=== PATIENT | female | born 1995 | race Caucasian/White ===

== ENCOUNTER 2018-09-23 21:47 | Emergency (ER) | payer SELFPAY ==
[~2018-09-23] VITALS: Ht 160 cm; Wt 152.0 kg
[2018-09-23 21:47] VITALS: BP 133/72
== END 2018-09-23 23:37 | disposition left against medical advice (07) ==
LOC: M ED 21:47
DX: Z53.21 Procedure and treatment not carried out due to patient leaving prior to being seen by health care provider (principal)

== ENCOUNTER 2018-10-11 15:51 | Emergency (ER) | payer OTHER, SELFPAY ==
[~2018-10-11] VITALS: Ht 160 cm; Wt 69.1 kg
[2018-10-11] MEDS ORDERED: ONDANSETRON 4MG/2ML VIAL (J2405) IV ONE (16:15)
[2018-10-11] MEDS ORDERED: NS 1,000 ML IV ONE (16:15)
[2018-10-11] MEDS ORDERED: KETOROLAC 30 MG/ML VIAL (J1885) IV ONE (16:15)
[2018-10-11 16:39] LABS: BASO # 0.1 10^3/uL (0.0-0.2); BASO % 0.7 % (0.0-1.0); EOS # 0.1 10^3/uL (0.0-0.50); EOS % 1.5 % (0.0-3.0); HEMATOCRIT 36.6 % (36.0-47.0); HEMOGLOBIN 12.5 g/dl (12.0-15.5); LYMPH # 2.8 10^3/uL (1.5-6.5); LYMPH % 30.1 % (24.0-44.0); MEAN CORPUSCULAR HEMOGLOBIN 35.3 pg (27.0-33.0); MEAN CORPUSCULAR HGB CONC 34.2 g/dl (32.0-36.5); MEAN CORPUSCULAR VOLUME 103.4 fl (80.0-96.0); MONO # 0.5 10^3/uL (0.0-0.8); NEUTROPHILS # 5.8 10^3/uL (1.8-7.7); NEUTROPHILS % 62.2 % (36.0-66.0); PLATELET COUNT, AUTOMATED 252 10^3/uL (150-450); RED BLOOD COUNT 3.54 10^6/uL (4.00-5.40); WHITE BLOOD COUNT 9.4 10^3/uL (4.0-10.0)
[2018-10-11 17:04] LABS: ALBUMIN 3.6 GM/DL (3.2-5.2); ALT/SGPT 18 U/L (12-78); BILIRUBIN,DIRECT < 0.1 MG/DL (0.0-0.2); BILIRUBIN,TOTAL 0.2 MG/DL (0.2-1.0); BLOOD UREA NITROGEN 15 MG/DL (7-18); CALCIUM LEVEL 8.3 MG/DL (8.5-10.1); CARBON DIOXIDE LEVEL 25 MEQ/L (21-32); CHLORIDE LEVEL 109 MEQ/L (98-107); CREATININE FOR GFR 0.69 MG/DL (0.55-1.30); GLOMERULAR FILTRATION RATE > 60.0 (>60); GLUCOSE, FASTING 78 MG/DL (70-100); LIPASE 85 U/L (73-393); POTASSIUM SERUM 3.7 MEQ/L (3.5-5.1); SODIUM LEVEL 140 MEQ/L (136-145); TOTAL PROTEIN 7.2 GM/DL (6.4-8.2)
[2018-10-11] MEDS ORDERED: ISOVUE-370 76% 125ML VIAL (Q9967 PER ML) As Ordered ONE (17:39)
[2018-10-11 17:59] LABS: URINE PREG TEST NEGATIVE (NEGATIVE)
--- NOTE | 2018-10-11 18:12 | REP ---
Clinical: Right flank pain with history of pyelonephritis. Technique: Axial contrast enhanced images from the lung bases to the pubic symphysis using 100 ml Isovue 370 intravenous contrast material with coronal and sagittal re-formations. Comparison: None. Findings: Lung bases are clear. Visualized heart and pericardium normal. Liver, spleen, pancreas, gallbladder, bilateral adrenal glands and kidneys are essentially normal. 2 mm and 3 mm nonobstructing right renal calculi are identified. There is no perinephric stranding or hydroureteronephrosis and no obvious evidence to suggest acute pyelonephritis by CT evaluation. The enteric system is without obstruction or acute inflammatory process. Normal terminal ileum and appendix identified in the right lower quadrant. Pelvis demonstrates collapsed normal bladder and age-appropriate uterus/adnexa. No pelvic fluid or ascites. No free air. No adenopathy. Abdominal aorta and vasculature without aneurysm or dissection. Ischial skeletal structures are intact. Impression: 1. No acute abdominopelvic pathology appreciated. 2. Two nonobstructing right intrarenal calculi and no obvious evidence to suggest acute pyelonephritis by CT evaluation. 3. No ascites, focal inflammatory stranding, or adenopathy. Electronically Signed by Herb Long MD 10/11/2018 06:04 P
[2018-10-11 18:41] VITALS: BP 109/70
== END 2018-10-11 18:55 | disposition home or self-care (01) ==
LOC: M ED 15:51
DX: R10.9 Unspecified abdominal pain (principal); F17.210 Nicotine dependence, cigarettes, uncomplicated; Z88.0 Allergy status to penicillin; Z88.5 Allergy status to narcotic agent; Z88.8 Allergy status to other drugs, medicaments and biological substances; Z87.442 Personal history of urinary calculi; Z87.448 Personal history of other diseases of urinary system; Z87.42 Personal history of other diseases of the female genital tract; Z84.2 Family history of other diseases of the genitourinary system
CPT/HCPCS: 36415; 74177; 80048; 80076; 81001; 81025; 83690; 84703; 85025; 96374; 96375; 99284; J1885; J2405; Q9967

== ENCOUNTER 2018-10-16 19:18 | Emergency (ER) | payer SELFPAY ==
[~2018-10-16] VITALS: Ht 160 cm; Wt 69.1 kg
[2018-10-16] MEDS ORDERED: NS 1,000 ML IV ONE (20:00)
[2018-10-16] MEDS ORDERED: KETOROLAC 30 MG/ML VIAL (J1885) IV ONE (20:00)
[2018-10-16] MEDS ORDERED: ONDANSETRON 4MG/2ML VIAL (J2405) IV ONE (20:00)
[2018-10-16 20:18] LABS: BASO # 0.1 10^3/uL (0.0-0.2); BASO % 1.1 % (0.0-1.0); EOS # 0.2 10^3/uL (0.0-0.50); EOS % 1.9 % (0.0-3.0); HEMOGLOBIN 13.2 g/dl (12.0-15.5); LYMPH # 2.9 10^3/uL (1.5-6.5); MEAN CORPUSCULAR HEMOGLOBIN 35.1 pg (27.0-33.0); MEAN CORPUSCULAR HGB CONC 33.8 g/dl (32.0-36.5); MEAN CORPUSCULAR VOLUME 103.7 fl (80.0-96.0); MONO # 0.6 10^3/uL (0.0-0.8); MONO % 6.2 % (0.0-5.0); NEUTROPHILS # 6.1 10^3/uL (1.8-7.7); NEUTROPHILS % 61.4 % (36.0-66.0); PLATELET COUNT, AUTOMATED 268 10^3/uL (150-450); RED BLOOD COUNT 3.76 10^6/uL (4.00-5.40)
[2018-10-16 20:39] LABS: BLOOD UREA NITROGEN 14 MG/DL (7-18); CALCIUM LEVEL 8.9 MG/DL (8.5-10.1); CARBON DIOXIDE LEVEL 27 MEQ/L (21-32); CHLORIDE LEVEL 108 MEQ/L (98-107); CREATININE FOR GFR 0.68 MG/DL (0.55-1.30); GLOMERULAR FILTRATION RATE > 60.0 (>60); GLUCOSE, FASTING 97 MG/DL (70-100); POTASSIUM SERUM 3.7 MEQ/L (3.5-5.1); SODIUM LEVEL 143 MEQ/L (136-145)
[2018-10-16 20:59] LABS: HCG, SERUM QUALITATIVE NEGATIVE (NEGATIVE)
--- NOTE | 2018-10-16 21:22 | REP ---
Clinical: Abdominal pain with history of nephrolithiasis. Technique: Axial noncontrast images from the lung bases to the pubic symphysis with coronal and sagittal re-formations. Comparison: 10/11/2018. Findings: Lung bases are clear. Liver, spleen, pancreas, gallbladder, and bilateral adrenal glands are normal for noncontrast evaluation. Kidneys demonstrate stable 2-3 mm calculi in the right kidney and 1 mm calculus in the left kidney without perinephric stranding, hydroureteronephrosis, or obstructing ureteral calculi. The enteric system is without obstruction or acute inflammatory process. Normal cecum, terminal ileum, and appendix identified in the right lower quadrant. Pelvis demonstrates collapsed normal bladder and age-appropriate uterus/adnexa. Small calcification in the right huey pelvis along the lateral aspect of the uterus appears chronic/stable. No ascites. No free air. No adenopathy. Abdominal aorta without aneurysm. Surrounding musculoskeletal structures are intact. Impression: 1. Stable nonobstructing renal calculi. 2. No acute abdominopelvic pathology appreciated. Electronically Signed by Herb Long MD 10/16/2018 09:13 P
[2018-10-16 22:39] VITALS: BP 96/54
== END 2018-10-16 22:41 | disposition home or self-care (01) ==
LOC: M ED 19:18
DX: R10.11 Right upper quadrant pain (principal); Z87.442 Personal history of urinary calculi; D64.9 Anemia, unspecified; N20.0 Calculus of kidney; Z72.0 Tobacco use; Z88.0 Allergy status to penicillin; Z88.5 Allergy status to narcotic agent; Z88.8 Allergy status to other drugs, medicaments and biological substances
CPT/HCPCS: 36415; 74176; 80048; 81001; 81025; 84703; 85025; 96361; 96374; 96375; 99284; J1885; J2405

== ENCOUNTER 2018-10-28 11:07 | Inpatient (IN) | payer BC, SELFPAY ==
[~2018-10-28] VITALS: Ht 160 cm; Wt 67.4 kg
[2018-10-28 11:47] LABS: HEMATOCRIT 40.2 % (36.0-47.0); HEMOGLOBIN 13.5 g/dl (12.0-15.5); MEAN CORPUSCULAR HEMOGLOBIN 35.3 pg (27.0-33.0); MEAN CORPUSCULAR HGB CONC 33.6 g/dl (32.0-36.5); MEAN CORPUSCULAR VOLUME 105.2 fl (80.0-96.0); PLATELET COUNT, AUTOMATED 235 10^3/uL (150-450); RED BLOOD COUNT 3.82 10^6/uL (4.00-5.40); WHITE BLOOD COUNT 9.4 10^3/uL (4.0-10.0)
[2018-10-28 12:20] LABS: ACETAMINOPHEN LEVEL < 2.0 UG/ML (10.0-30.0); ALBUMIN 4.1 GM/DL (3.2-5.2); ALT/SGPT 18 U/L (12-78); BILIRUBIN,DIRECT < 0.1 MG/DL (0.0-0.2); BILIRUBIN,TOTAL 0.4 MG/DL (0.2-1.0); BLOOD UREA NITROGEN 10 MG/DL (7-18); CALCIUM LEVEL 8.8 MG/DL (8.5-10.1); CARBON DIOXIDE LEVEL 24 MEQ/L (21-32); CHLORIDE LEVEL 110 MEQ/L (98-107); CREATININE FOR GFR 0.68 MG/DL (0.55-1.30); ETHYL ALCOHOL (ETHANOL) < 0.003 % (0.000-0.010); GLOMERULAR FILTRATION RATE > 60.0 (>60); GLUCOSE, FASTING 96 MG/DL (70-100); POTASSIUM SERUM 4.3 MEQ/L (3.5-5.1); SALICYLATE LEVEL 3.2 MG/DL (5.0-30.0); SODIUM LEVEL 139 MEQ/L (136-145); TOTAL PROTEIN 7.5 GM/DL (6.4-8.2)
[2018-10-28 13:01] LABS: AMPHETAMINES LEVEL URINE NEGATIVE (NEGATIVE); BARBITURATES URINE NEGATIVE (NEGATIVE); BENZODIAZEPINES URINE NEGATIVE (NEGATIVE); CANNABINOIDS URINE NEGATIVE (NEGATIVE); COCAINE METABOLITE URINE NEGATIVE (NEGATIVE); METHADONE URINE NEGATIVE (NEGATIVE); OPIATES URINE NEGATIVE (NEGATIVE); PHENCYCLIDINE URINE NEGATIVE (NEGATIVE)
[2018-10-28 13:45] LABS: URINE PREG TEST NEGATIVE (NEGATIVE)
[2018-10-28] MEDS ORDERED: MAALOX 30 ML SUSP *UDC PO PRN (15:15)
[2018-10-28] MEDS ORDERED: traZODone 50 MG TAB PO PRN (15:15)
[2018-10-28] MEDS ORDERED: MOM 30ML SUSPENSION UDC PO PRN (15:15)
[2018-10-28] MEDS: NICOTINE 21MG/24HR 1 EA TRANSDERMAL TD SCH (15:40)
[2018-10-28] MEDS: ACETAMINOPHEN TAB 650MG DOSE (2X325MG) PO PRN (15:40)
[2018-10-28] MEDS ORDERED: ACETAMINOPHEN 325 MG TAB As Ordered ONE (15:42)
[2018-10-28 17:01] VITALS: BP 112/63
[2018-10-29 06:31] VITALS: BP 115/64
[2018-10-29] MEDS: NICOTINE 21MG/24HR 1 EA TRANSDERMAL TD SCH (09:37)
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
[2018-10-29] MEDS ORDERED: ESCITALOPRAM OXALATE 10 MG TAB (LEXAPRO) PO ONE (15:30)
--- NOTE | 2018-10-29 16:27 | HPEPDOC ---
[facility] Medical History & Physical Date of Admission Oct 29, 2018 History and Physical CHIEF COMPLAINT: Suicidal ideation HISTORY OF PRESENT ILLNESS: 23 yo female presented suicidal ideation, and what she referred to as 'depressive and schizophrenic episode'. She denies headaches, changes in vision, chest pain, shortness of breath, abdominal pain, N/V/D. She notes some left heel pain, and endorses mild trauma to the area several months ago. She states she did follow up in [place] and had x-rays which as per patient revealed a sprain and no fracture. PAST MEDICAL HISTORY: Denies PAST SURGICAL HISTORY: x 3 ALLERGIES: Please see below. HOME MEDICATIONS: Please see below. PHYSICAL EXAMINATION: General: NAD, sitting comfortably on exam table, in good spirits HEENT: NC/AT, EOMI, PERRL, poor dentition Lungs: CTA B/L Heart: +S1S2, RRR Abd: soft, NT, +BS Ext: mild swelling on left heel, tender to touch, somewhat limited range of motion Neuro: no gross focal deficits, sensation intact throughout LABORATORY DATA: See below. ASSESSMENT: 23 yo female with no past medical history admitted for suicidal ideation. Plan: #suicidal ideation/depression/PTSD, multiple personality d/o - follow as per primary team - psychiatry #foot pain - CT left foot #nicotine abuse - 1 ppd/10 years - nicotine replacement therapy in place #DVT prophylaxis - not indicated - encourage mobility Vital Signs Vital Signs Date Time Temp Pulse Resp B/P (MAP) Pulse Ox O2 Delivery O2 Flow Rate FiO2 10/29/18 06:31 97.8 77 14 115/64 (81) 10/28/18 17:01 95 10/28/18 16:55 Room Air Laboratory Data Labs 24H Laboratory Tests 2 10/28/18 11:36: Nucleated Red Blood Cells % (auto) 0.0, Anion Gap 5L, Glomerular Filtration Rate > 60.0, Calcium Level 8.8, Aspartate Amino Transf (AST/SGOT) 13, Alanine Aminotransferase (ALT/SGPT) 18, Alkaline Phosphatase 57, Total Bilirubin 0.4, Direct Bilirubin < 0.1, Total Protein 7.5, Albumin 4.1, Albumin/Globulin Ratio 1.21, Thyroid Stimulating Hormone (TSH) 1.380, Salicylates Level 3.2L, Acetaminophen Level < 2.0L, Ethyl Alcohol Level < 0.003 10/28/18 12:26: Urine Test NEGATIVE, Urine Amphetamines Screen NEGATIVE, Urine Benzodiazepines Screen NEGATIVE, Urine Opiates Screen NEGATIVE, Urine Methadone Screen NEGATIVE, Urine Barbiturates Screen NEGATIVE, Urine Phencyclidine Screen NEGATIVE, Urine Cocaine Metabolite Screen NEGATIVE, Urine Cannabinoids Screen NEGATIVE CBC/BMP Laboratory Tests 10/28/18 11:36 Red Blood Count 3.82 L, Mean Corpuscular Volume 105.2 H, Mean Corpuscular Hemoglobin 35.3 H, Mean Corpuscular Hemoglobin Concent 33.6, Red Cell Distribution Width 12.1 Home Medications No Active Prescriptions or Reported Meds Allergies Coded Allergies: Penicillins (Verified Allergy, Intermediate, ANAPHYLAXIS, 10/11/18) cyclobenzaprine (Verified Allergy, Intermediate, ANAPHYLAXIS, 10/11/18) meperidine (Verified Allergy, Intermediate, ANAPHYLAXIS, 10/11/18) morphine (Verified Allergy, Intermediate, ITCHING, 10/11/18) valproic acid (Verified Allergy, Intermediate, ANAPHYLAXIS, 10/11/18) divalproex sodium (Verified Allergy, Unknown, 10/28/18) hydrocodone (Verified Adverse Reaction, Intermediate, HALLUCINATIONS, 10/11/18) PIERRE CAMACHO MD Oct 29, 2018 10:53
[2018-10-29 18:06] VITALS: BP 115/58
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
[2018-10-29] MEDS: QUEtiapine FUMARATE 25 MG TAB PO SCH (21:09)
[2018-10-29] MEDS: ACETAMINOPHEN TAB 650MG DOSE (2X325MG) PO PRN (21:36)
[2018-10-30 07:00] VITALS: BP 117/55
[2018-10-30] MEDS: NICOTINE 21MG/24HR 1 EA TRANSDERMAL TD SCH (09:01)
[2018-10-30] MEDS: ESCITALOPRAM OXALATE 10 MG TAB (LEXAPRO) PO SCH (09:02)
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
[2018-10-30] MEDS: ACETAMINOPHEN TAB 650MG DOSE (2X325MG) PO PRN (12:06)
[2018-10-30 18:05] VITALS: BP 114/70
--- NOTE | 2018-10-30 19:06 | IPNPDOC ---
Text Note Date of Service The patient was seen on 10/30/18. NOTE Subjective: Patient seen and examined. No acute overnight events. No new medical complaints. States her left heel feels about the same. Objective: General: NAD, sitting comfortably on exam table, in good spirits HEENT: NC/AT, EOMI, PERRL, poor dentition Lungs: CTA B/L Heart: +S1S2, RRR Abd: soft, NT, +BS Ext: mild swelling on left heel, tender to touch, somewhat limited range of motion Neuro: no gross focal deficits, sensation intact throughout ASSESSMENT: 23 yo female with no past medical history admitted for suicidal ideation. Plan: #suicidal ideation/depression/PTSD, multiple personality d/o - follow as per primary team - psychiatry #foot pain - CT left foot noted - no fracture #nicotine abuse - 1 ppd/10 years - nicotine replacement therapy in place #DVT prophylaxis - not indicated - encourage mobility VS,Fishbone, I+O VS, Fishbone, I+O Vital Signs Date Time Temp Pulse Resp B/P (MAP) Pulse Ox O2 Delivery O2 Flow Rate FiO2 10/30/18 18:05 98.8 83 16 114/70 (85) 10/28/18 17:01 95 10/28/18 16:55 Room Air PIERRE CAMACHO MD Oct 30, 2018 19:06
[2018-10-30] MEDS: QUEtiapine FUMARATE 25 MG TAB PO SCH (22:41)
[2018-10-31 07:05] VITALS: BP 103/57
[2018-10-31] MEDS: NICOTINE 21MG/24HR 1 EA TRANSDERMAL TD SCH (08:31)
[2018-10-31] MEDS: ESCITALOPRAM OXALATE 10 MG TAB (LEXAPRO) PO SCH (08:32)
[2018-10-31] MEDS: ACETAMINOPHEN TAB 650MG DOSE (2X325MG) PO PRN (08:59)
[2018-10-31 18:00] VITALS: BP 110/68
--- NOTE | 2018-10-31 18:17 | IPNPDOC ---
Text Note Date of Service The patient was seen on 10/31/18. NOTE Subjective: Patient seen and examined. No acute overnight events. No new medical complaints. States her left heel has somewhat improved Objective: General: NAD, sitting comfortably on exam table HEENT: NC/AT, EOMI, PERRL, poor dentition Lungs: CTA B/L Heart: +S1S2, RRR Abd: soft, NT, +BS Ext: mild swelling on left heel, tender to touch, limited range of motion Neuro: no gross focal deficits, sensation intact throughout ASSESSMENT: 23 yo female with no past medical history admitted for suicidal ideation. Plan: #suicidal ideation/depression/PTSD, multiple personality d/o - follow as per primary team - psychiatry #foot pain - CT left foot noted - no fracture - improving #nicotine abuse - 1 ppd/10 years - nicotine replacement therapy in place #DVT prophylaxis - not indicated - encourage mobility VS,Fishbone, I+O VS, Fishbone, I+O Vital Signs Date Time Temp Pulse Resp B/P (MAP) Pulse Ox O2 Delivery O2 Flow Rate FiO2 10/31/18 07:05 98.9 83 15 103/57 (72) 10/28/18 17:01 95 10/28/18 16:55 Room Air PIERRE CAMACHO MD Oct 31, 2018 18:17
[2018-10-31] MEDS: QUEtiapine FUMARATE 25 MG TAB PO SCH (22:53)
[2018-11-01 06:26] VITALS: BP 111/56
[2018-11-01] MEDS: ESCITALOPRAM OXALATE 10 MG TAB (LEXAPRO) PO SCH (08:36)
[2018-11-01] MEDS: NICOTINE 21MG/24HR 1 EA TRANSDERMAL TD SCH (08:36)
--- NOTE | 2018-11-01 12:46 | IPNPDOC ---
Text Note Date of Service The patient was seen on 11/01/18. NOTE Subjective: Patient seen and examined. No acute overnight events. Still complains of left ankle pain, worsens with movement and bearing weight. Objective: General: NAD, sitting comfortably on exam table HEENT: NC/AT, EOMI, PERRL, poor dentition Lungs: CTA B/L Heart: +S1S2, RRR Abd: soft, NT, +BS Ext: tender to touch, limited range of motion secondary to pain Neuro: no gross focal deficits, sensation intact throughout ASSESSMENT: 23 yo female with no past medical history admitted for suicidal ideation. Plan: #suicidal ideation/depression/PTSD, multiple personality d/o - follow as per primary team - psychiatry #foot pain - CT left foot noted - no fracture - still c/o pain - ortho c/s pending; MRI? #nicotine abuse - 1 ppd/10 years - nicotine replacement therapy in place #DVT prophylaxis - not indicated VS,Fishbone, I+O VS, Fishbone, I+O Vital Signs Date Time Temp Pulse Resp B/P (MAP) Pulse Ox O2 Delivery O2 Flow Rate FiO2 11/01/18 06:26 98.9 86 18 111/56 (74) 10/28/18 17:01 95 10/28/18 16:55 Room Air PIERRE CAMACHO MD Nov 01, 2018 12:46
[2018-11-01 18:00] VITALS: BP 113/69
[2018-11-01] MEDS: ACETAMINOPHEN TAB 650MG DOSE (2X325MG) PO PRN (20:55)
--- NOTE | 2018-11-01 21:32 | MHIPN ---
DATE: 10/31/2018 Says feels better today. SUBJECTIVE: Seen for followup in the presence of staff. Says feels better and that she had a good night. Slept better. Says appetite is improved. MENTAL STATUS EXAMINATION: Neat and cooperative. No agitation. No psychomotor retardation. She is coherent. Affect is reactive, fairly broad. Denies any suicidal thoughts or intents at present. No homicidal ideas or intents. No evidence of any psychosis. Cognition grossly intact. Judgment and insight are compromised at present. ASSESSMENT: 1. Major depressive disorder, recurrent, without psychotic features. 2. History of posttraumatic stress disorder. PLAN: Continue current care, observations. Encourage participation in activity in the unit. VITAL SIGNS: Blood pressure 103/57, pulse 83, temperature 98.9.
[2018-11-01] MEDS: QUEtiapine FUMARATE 25 MG TAB PO SCH (21:50)
[2018-11-02 06:29] VITALS: BP 116/60
[2018-11-02] MEDS: NICOTINE 21MG/24HR 1 EA TRANSDERMAL TD SCH ×2 (08:02→08:04)
[2018-11-02] MEDS: ESCITALOPRAM OXALATE 10 MG TAB (LEXAPRO) PO SCH (08:02)
--- NOTE | 2018-11-02 09:03 | MHIPN ---
DATE: 11/01/2018 CHIEF COMPLAINT: Feels better. SUBJECTIVE: Seen for follow-up, in the presence of staff. Says feels better, and that she had a good night. She says she feels more confident talking about matters that stress her, including her relationship with her father, and that she feels less anxious when doing that. MENTAL STATUS EXAMINATION: Neat and cooperative. No agitation. She is coherent. Affect broader than yesterday. Denies any suicidal thoughts or intents. No homicidal ideas or intents. No current evidence of any psychosis. Cognition grossly intact. Judgment and insight are possibly improved. ASSESSMENT: Major depressive disorder, recurrent. History of posttraumatic stress disorder (PTSD). PLAN: Continue current care, observations, encourage participation in activities on the unit. She will be meeting the treatment team, as well as the assigned psychiatrist tomorrow, and further recommendations will be made. VITAL SIGNS: Blood pressure 111/66, pulse 86, temperature 98.9.
[2018-11-02] MEDS ORDERED: ESCI10TA2 PO (09:14)
[2018-11-02] MEDS ORDERED: QUET1TAB7 PO (09:14)
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
== END 2018-11-02 11:27 | disposition home or self-care (01) | DRG 751 ==
LOC: M ED 11:07 → M ED INP 15:04 → M PSY 17:05
PROVIDERS: ADMIT Psychiatry & Neurology Psychiatry; ATTEND Psychiatry & Neurology Psychiatry
DX: F33.2 Major depressive disorder, recurrent severe without psychotic features (principal); F17.200 Nicotine dependence, unspecified, uncomplicated; F43.10 Post-traumatic stress disorder, unspecified; M79.672 Pain in left foot; Z88.0 Allergy status to penicillin; Z88.8 Allergy status to other drugs, medicaments and biological substances; Z88.5 Allergy status to narcotic agent

== ENCOUNTER 2018-11-09 12:49 | Inpatient (IN) | payer BC ==
[~2018-11-09] VITALS: Ht 160 cm; Wt 67.0 kg
[~2018-11-09 12:49] MED LIST: ESCI10TA2 PO; QUET1TAB7 PO
[2018-11-09 13:46] LABS: HEMATOCRIT 39.6 % (36.0-47.0); HEMOGLOBIN 13.3 g/dl (12.0-15.5); MEAN CORPUSCULAR HEMOGLOBIN 35.3 pg (27.0-33.0); MEAN CORPUSCULAR HGB CONC 33.6 g/dl (32.0-36.5); PLATELET COUNT, AUTOMATED 278 10^3/uL (150-450); RED BLOOD COUNT 3.77 10^6/uL (4.00-5.40); WHITE BLOOD COUNT 10.6 10^3/uL (4.0-10.0)
[2018-11-09 14:05] LABS: HCG, SERUM QUALITATIVE NEGATIVE (NEGATIVE)
[2018-11-09 14:17] LABS: ACETAMINOPHEN LEVEL < 2.0 UG/ML (10.0-30.0); ALBUMIN 4.1 GM/DL (3.2-5.2); ALT/SGPT 20 U/L (12-78); BILIRUBIN,DIRECT < 0.1 MG/DL (0.0-0.2); BILIRUBIN,TOTAL 0.3 MG/DL (0.2-1.0); BLOOD UREA NITROGEN 10 MG/DL (7-18); CALCIUM LEVEL 8.7 MG/DL (8.5-10.1); CARBON DIOXIDE LEVEL 29 MEQ/L (21-32); CHLORIDE LEVEL 106 MEQ/L (98-107); ETHYL ALCOHOL (ETHANOL) < 0.003 % (0.000-0.010); GLOMERULAR FILTRATION RATE > 60.0 (>60); GLUCOSE, FASTING 94 MG/DL (70-100); POTASSIUM SERUM 4.2 MEQ/L (3.5-5.1); SALICYLATE LEVEL 2.8 MG/DL (5.0-30.0); SODIUM LEVEL 141 MEQ/L (136-145); THYROID STIMULATING HORMONE 0.988 uIU/ML (0.358-3.740); TOTAL PROTEIN 7.1 GM/DL (6.4-8.2)
[2018-11-09 16:13] LABS: AMPHETAMINES LEVEL URINE NEGATIVE (NEGATIVE); BARBITURATES URINE NEGATIVE (NEGATIVE); BENZODIAZEPINES URINE NEGATIVE (NEGATIVE); CANNABINOIDS URINE NEGATIVE (NEGATIVE); COCAINE METABOLITE URINE NEGATIVE (NEGATIVE); METHADONE URINE NEGATIVE (NEGATIVE); OPIATES URINE NEGATIVE (NEGATIVE); PHENCYCLIDINE URINE NEGATIVE (NEGATIVE)
[2018-11-09] MEDS ORDERED: QUET1TAB7 PO (18:12)
[2018-11-09] MEDS ORDERED: ESCI10TA2 PO (18:12)
[2018-11-09] MEDS ORDERED: ACET-683 PO (18:12)
[2018-11-09] MEDS ORDERED: MAALOX 30 ML SUSP *UDC PO PRN (19:00)
[2018-11-09] MEDS ORDERED: ACETAMINOPHEN TAB 650MG DOSE (2X325MG) PO PRN (19:00)
[2018-11-09] MEDS ORDERED: MOM 30ML SUSPENSION UDC PO PRN (19:00)
[2018-11-09] MEDS ORDERED: traZODone 50 MG TAB PO PRN (19:00)
[2018-11-09] MEDS: QUEtiapine FUMARATE 25 MG TAB PO SCH (21:50)
[2018-11-09 22:48] VITALS: BP 119/70
[2018-11-10 06:39] VITALS: BP 110/55
[2018-11-10] MEDS ORDERED: ESCITALOPRAM OXALATE 10 MG TAB (LEXAPRO) PO SCH (09:00)
[2018-11-10] MEDS: NICOTINE 21MG/24HR 1 EA TRANSDERMAL TD SCH (09:30)
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
[2018-11-10] MEDS ORDERED: ESCITALOPRAM OXALATE 10 MG TAB (LEXAPRO) PO ONE (12:45)
[2018-11-10 18:00] VITALS: BP 111/65
[2018-11-10] MEDS: QUEtiapine FUMARATE 25 MG TAB PO SCH (21:19)
[2018-11-11] MEDS: ESCITALOPRAM OXALATE 10 MG TAB (LEXAPRO) PO SCH (08:35)
[2018-11-11] MEDS: NICOTINE 21MG/24HR 1 EA TRANSDERMAL TD SCH (08:36)
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
[2018-11-11 18:00] VITALS: BP 120/57
[2018-11-11] MEDS: QUEtiapine FUMARATE 25 MG TAB PO SCH (21:32)
[2018-11-12 07:53] VITALS: BP 114/60
[2018-11-12] MEDS: ESCITALOPRAM OXALATE 10 MG TAB (LEXAPRO) PO SCH (08:12)
[2018-11-12] MEDS: NICOTINE 21MG/24HR 1 EA TRANSDERMAL TD SCH (08:13)
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
[2018-11-12] MEDS: hydrOXYzine 25 MG TAB PO PRN (12:43)
[2018-11-12 18:00] VITALS: BP 110/59
[2018-11-12] MEDS: QUEtiapine FUMARATE 25 MG TAB PO SCH (21:31)
[2018-11-13 07:12] VITALS: BP 83/16
[2018-11-13] MEDS: NICOTINE 21MG/24HR 1 EA TRANSDERMAL TD SCH (08:18)
[2018-11-13] MEDS: ESCITALOPRAM OXALATE 10 MG TAB (LEXAPRO) PO SCH (08:19)
[2018-11-13] MEDS: hydrOXYzine 25 MG TAB PO PRN (08:19)
[2018-11-13] MEDS ORDERED: ESCI10TA2 PO (08:59)
[2018-11-13] MEDS ORDERED: HYDR-3363 PO (08:59)
[2018-11-13] MEDS ORDERED: QUET1TAB7 PO (08:59)
[2018-11-13] MEDS ORDERED: TRAZO50TA PO (08:59)
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
== END 2018-11-13 11:15 | disposition home or self-care (01) | DRG 751 ==
LOC: M ED 12:49 → M ED INP 18:55 → M PSY 22:41
PROVIDERS: ADMIT Psychiatry & Neurology Psychiatry; ATTEND Psychiatry & Neurology Psychiatry
DX: F33.9 Major depressive disorder, recurrent, unspecified (principal); F60.3 Borderline personality disorder; F43.10 Post-traumatic stress disorder, unspecified; Z91.42 Personal history of forced labor or sexual exploitation; Z79.899 Other long term (current) drug therapy; Z88.0 Allergy status to penicillin; Z88.5 Allergy status to narcotic agent; Z88.8 Allergy status to other drugs, medicaments and biological substances

== ENCOUNTER → 2018-11-21 | Emergency (ER) | payer BC ==
[~2018-11-21] VITALS: Ht 160 cm; Wt 62.7 kg
[~2018-11-21] MED LIST changes: +ACET-683 PO; +HYDR-3363 PO; +IBUP-1022 PO; +MIRA3350 PO; +SIME180C PO; +TRAZ1TAB10 PO
[2018-11-21 00:08] VITALS: BP 119/72
== END | disposition left against medical advice (07) ==
LOC: M ED 00:07
DX: R10.9 Unspecified abdominal pain (principal); Z53.21 Procedure and treatment not carried out due to patient leaving prior to being seen by health care provider

== ENCOUNTER → 2018-11-24 | Outpatient (REF) | payer BC ==
[~2018-11-24] MED LIST changes: -IBUP-1022 PO; -MIRA3350 PO; -SIME180C PO; -TRAZ1TAB10 PO; +TRAZO50TA PO
[2018-11-24 11:57] LABS: BASO # 0.1 10^3/uL (0.0-0.2); BASO % 0.7 % (0.0-1.0); EOS # 0.1 10^3/uL (0.0-0.50); EOS % 1.2 % (0.0-3.0); HEMOGLOBIN 14.2 g/dl (12.0-15.5); LYMPH # 2.8 10^3/uL (1.5-6.5); LYMPH % 25.7 % (24.0-44.0); MEAN CORPUSCULAR HEMOGLOBIN 35.6 pg (27.0-33.0); MEAN CORPUSCULAR VOLUME 107.8 fl (80.0-96.0); MONO # 0.6 10^3/uL (0.0-0.8); MONO % 5.4 % (0.0-5.0); NEUTROPHILS # 7.1 10^3/uL (1.8-7.7); NEUTROPHILS % 66.4 % (36.0-66.0); PLATELET COUNT, AUTOMATED 275 10^3/uL (150-450); RED BLOOD COUNT 3.99 10^6/uL (4.00-5.40); WHITE BLOOD COUNT 10.8 10^3/uL (4.0-10.0)
[2018-11-24 12:18] LABS: ALBUMIN 3.8 GM/DL (3.2-5.2); ALT/SGPT 20 U/L (12-78); BILIRUBIN,TOTAL 0.3 MG/DL (0.2-1.0); BLOOD UREA NITROGEN 11 MG/DL (7-18); CALCIUM LEVEL 8.8 MG/DL (8.5-10.1); CARBON DIOXIDE LEVEL 27 MEQ/L (21-32); CHLORIDE LEVEL 108 MEQ/L (98-107); CHOLESTEROL LEVEL 150 MG/DL (<200); CREATININE FOR GFR 0.77 MG/DL (0.55-1.30); FREE T4 0.81 NG/DL (0.76-1.46); GLOMERULAR FILTRATION RATE > 60.0 (>60); GLUCOSE, FASTING 92 MG/DL (70-100); HDL CHOLESTEROL 40 MG/DL (>40); LDL CHOLESTEROL 73 MG/DL (<100); NON-HDL-C 110 MG/DL; POTASSIUM SERUM 4.5 MEQ/L (3.5-5.1); SODIUM LEVEL 140 MEQ/L (136-145); THYROID STIMULATING HORMONE 0.992 uIU/ML (0.358-3.740); TOTAL 25(OH) VITAMIN D 15.1 NG/ML (30.0-100.0); TOTAL PROTEIN 7.5 GM/DL (6.4-8.2); TRIGLYCERIDES LEVEL 184 MG/DL (<150)
[2018-11-24 19:12] LABS: FOLATE 7.7 NG/ML (>5.4); VITAMIN B12 LEVEL 405 PG/ML (247-911)
== END ==
LOC: M SFHCPLAZ 10:06
PROVIDERS: ATTEND Nurse Practitioner Family
DX: Z13.228 Encounter for screening for other metabolic disorders (principal); E55.9 Vitamin D deficiency, unspecified

== ENCOUNTER 2018-12-13 22:23 | Emergency (ER) | payer BC ==
[~2018-12-13] VITALS: Ht 160 cm; Wt 66.8 kg
[~2018-12-13 22:23] MED LIST changes: +TRAZ1TAB10 PO; -TRAZO50TA PO
[2018-12-13 22:58] LABS: BASO # 0.1 10^3/uL (0.0-0.2); BASO % 0.9 % (0.0-1.0); EOS # 0.2 10^3/uL (0.0-0.50); EOS % 2.1 % (0.0-3.0); HEMATOCRIT 42.1 % (36.0-47.0); HEMOGLOBIN 14.2 g/dl (12.0-15.5); LYMPH # 3.5 10^3/uL (1.5-6.5); LYMPH % 36.1 % (24.0-44.0); MEAN CORPUSCULAR HEMOGLOBIN 35.9 pg (27.0-33.0); MEAN CORPUSCULAR HGB CONC 33.7 g/dl (32.0-36.5); MEAN CORPUSCULAR VOLUME 106.3 fl (80.0-96.0); MONO # 0.7 10^3/uL (0.0-0.8); MONO % 6.9 % (0.0-5.0); NEUTROPHILS # 5.2 10^3/uL (1.8-7.7); NEUTROPHILS % 53.5 % (36.0-66.0); PLATELET COUNT, AUTOMATED 280 10^3/uL (150-450); RED BLOOD COUNT 3.96 10^6/uL (4.00-5.40); WHITE BLOOD COUNT 9.8 10^3/uL (4.0-10.0)
[2018-12-13 23:21] LABS: HCG, SERUM QUALITATIVE NEGATIVE (NEGATIVE)
[2018-12-13 23:24] LABS: ALBUMIN 3.8 GM/DL (3.2-5.2); ALT/SGPT 23 U/L (12-78); BILIRUBIN,DIRECT < 0.1 MG/DL (0.0-0.2); BILIRUBIN,TOTAL 0.1 MG/DL (0.2-1.0); BLOOD UREA NITROGEN 12 MG/DL (7-18); CALCIUM LEVEL 8.6 MG/DL (8.5-10.1); CARBON DIOXIDE LEVEL 29 MEQ/L (21-32); CHLORIDE LEVEL 108 MEQ/L (98-107); GLOMERULAR FILTRATION RATE > 60.0 (>60); GLUCOSE, FASTING 94 MG/DL (70-100); LIPASE 131 U/L (73-393); POTASSIUM SERUM 4.3 MEQ/L (3.5-5.1); SODIUM LEVEL 144 MEQ/L (136-145); TOTAL PROTEIN 7.8 GM/DL (6.4-8.2)
[2018-12-14] MEDS ORDERED: KETOROLAC 30 MG/ML VIAL (J1885) IV ONE (00:15)
[2018-12-14] MEDS ORDERED: ONDANSETRON 4MG/2ML VIAL (J2405) IV ONE (00:15)
[2018-12-14] MEDS ORDERED: NS 1,000 ML IV ONE (00:15)
[2018-12-14] MEDS ORDERED: ISOVUE-370 76% 100ML VIAL (Q9967) As Ordered ONE (00:29)
--- NOTE | 2018-12-14 01:30 | REPVR ---
EXAM: CT Abdomen and Pelvis With Contrast EXAM DATE/TIME: 12/14/2018 12:35 AM CLINICAL HISTORY: 23 years old, female; Abdominal pain; Localized; Right; Additional info: Right abd pain, guarding TECHNIQUE: Imaging protocol: Axial computed tomography images of the abdomen and pelvis with intravenous contrast. Coronal and sagittal reformatted images were created and reviewed. Radiation optimization: All CT scans at this facility use at least one of these dose optimization techniques: automated exposure control; mA and/or kV adjustment per patient size (includes targeted exams where dose is matched to clinical indication); or iterative reconstruction. Contrast material: ISOVUE 370; Contrast volume: 100 ml; Contrast route: IV; COMPARISON: CT ABD/PEL W/IV CONTRAST ONLY 10/11/2018 5:42 PM FINDINGS: Lungs: Bilateral dependent atelectasis. ABDOMEN: Liver: Normal. No mass. Gallbladder and bile ducts: Normal. No calcified stones. No ductal dilation. Pancreas: Normal. No ductal dilation. Spleen: Normal. No splenomegaly. Adrenals: Normal. No mass. Kidneys and ureters: Right renal cortical scarring. Nonobstructive calculus in the superior pole of the right kidney. No hydronephrosis. Stomach and bowel: No bowel obstruction. Appendix: Normal appendix. PELVIS: Bladder: Unremarkable as visualized. Reproductive: Gas in the vagina. Rectovaginal fistula cannot be excluded. Complex 2 cm left ovarian cyst can be further assessed with pelvic ultrasound if clinically warranted. ABDOMEN and PELVIS: Intraperitoneal space: Trace free fluid in the cul-de-sac. Bones/joints: Bilateral L4 pars interarticularis defects. Soft tissues: Mild diastases of the periumbilical abdominal wall. Vasculature: Normal. No abdominal aortic aneurysm. Lymph nodes: Normal. No enlarged lymph nodes. IMPRESSION: 1. Gas in the vagina. Rectovaginal fistula cannot be excluded. 2. Trace free fluid in the cul-de-sac. Complex 2 cm left ovarian cyst can be further assessed with pelvic ultrasound if clinically warranted. 3. Nonobstructive calculus in the superior pole of the right kidney. No hydronephrosis. 4. No bowel obstruction. Normal appendix. Electronically signed by: Joby Brennan On 12/14/2018 01:29:35 AM
[2018-12-14 02:01] VITALS: BP 111/70
[2018-12-14] MEDS ORDERED: MIRA3350 PO (02:05)
[2018-12-14] MEDS ORDERED: IBUP-1022 PO (02:05)
[2018-12-14] MEDS ORDERED: SIME180C PO (02:05)
--- NOTE | 2018-12-14 06:38 | ED PDOC ---
Post-Departure Follow-Up noe martinez faxed formal report of ct abd/p for fu Yan Mckee MD Dec 14, 2018 06:38
== END 2018-12-14 02:11 | disposition home or self-care (01) ==
LOC: M ED 22:23
DX: N83.202 Unspecified ovarian cyst, left side (principal); N89.8 Other specified noninflammatory disorders of vagina; F33.9 Major depressive disorder, recurrent, unspecified; F41.9 Anxiety disorder, unspecified; F60.9 Personality disorder, unspecified; Z79.899 Other long term (current) drug therapy; Z88.0 Allergy status to penicillin; Z88.5 Allergy status to narcotic agent; Z88.8 Allergy status to other drugs, medicaments and biological substances; F17.210 Nicotine dependence, cigarettes, uncomplicated
CPT/HCPCS: 74177; 80048; 80076; 81001; 83690; 84703; 85025; 96361; 96374; 96375; 99284; J1885; J2405; Q9967

== ENCOUNTER 2019-01-10 01:56 | Emergency (ER) | payer BC, SELFPAY ==
[~2019-01-10] VITALS: Ht 160 cm; Wt 68.2 kg
[~2019-01-10 01:56] MED LIST changes: +IBUP-1022 PO; +MIRA3350 PO; +SIME180C PO
[2019-01-10] MEDS ORDERED: KETOROLAC 30 MG/ML VIAL (J1885) IV ONE (04:45)
[2019-01-10] MEDS ORDERED: dexameTHASONE 20 MG/5 ML VIAL (J1100) IV ONE (04:45)
[2019-01-10 05:37] VITALS: BP 124/69
[2019-01-21] MEDS ORDERED: REGL5TAB2 PO (19:04)
[2019-01-21] MEDS ORDERED: ZITH250T PO (19:04)
[2019-01-21] MEDS ORDERED: IBUP-1022 PO (19:04)
== END 2019-01-10 06:22 | disposition home or self-care (01) ==
LOC: M ED 01:56
DX: G43.909 Migraine, unspecified, not intractable, without status migrainosus (principal); Z79.899 Other long term (current) drug therapy; Z88.0 Allergy status to penicillin; Z88.5 Allergy status to narcotic agent; Z88.8 Allergy status to other drugs, medicaments and biological substances; F17.210 Nicotine dependence, cigarettes, uncomplicated
CPT/HCPCS: 96374; 96375; 99284; J1100; J1885

== ENCOUNTER 2019-02-15 21:00 | Emergency (ER) | payer SELFPAY ==
[~2019-02-15] VITALS: Ht 160 cm; Wt 68.2 kg
[~2019-02-15 21:00] MED LIST changes: +REGL5TAB2 PO; +ZITH250T PO
[2019-02-15 21:01] VITALS: BP 132/78
[2019-02-15] MEDS ORDERED: BUTACAP78 PO (21:07)
[2019-02-16] MEDS ORDERED: BUPIVACAINE LIPOSOME/PF 1.3% 20ML VIAL (13.3MG/ML)(EXPAREL)(C9290 PER1MG) INFIL ONE (00:45)
[2019-02-16] MEDS ORDERED: CLEO300C2 PO (00:48)
== END 2019-02-16 01:12 | disposition home or self-care (01) ==
LOC: M ED 21:00
DX: K02.9 Dental caries, unspecified (principal); K08.89 Other specified disorders of teeth and supporting structures; F60.9 Personality disorder, unspecified; Z72.0 Tobacco use; Z88.0 Allergy status to penicillin; Z88.8 Allergy status to other drugs, medicaments and biological substances; Z88.5 Allergy status to narcotic agent
CPT/HCPCS: 64400; 99283; C9290

== ENCOUNTER 2019-02-18 13:17 | Emergency (ER) | payer SELFPAY ==
[~2019-02-18] VITALS: Ht 160 cm; Wt 68.2 kg
[~2019-02-18 13:17] MED LIST changes: +BUTACAP78 PO; +CLEO300C2 PO
[2019-02-18] MEDS ORDERED: IBUP-1022 PO (13:23)
[2019-02-18] MEDS ORDERED: KETOROLAC 60 MG/2 ML VIAL (J1885) IM ONE (16:30)
[2019-02-18] MEDS ORDERED: KETO10TAB PO (16:52)
[2019-02-18 17:05] VITALS: BP 112/76
== END 2019-02-18 17:06 | disposition home or self-care (01) ==
LOC: M ED 13:17
DX: K04.7 Periapical abscess without sinus (principal); K02.9 Dental caries, unspecified; S02.5XXA Fracture of tooth (traumatic), initial encounter for closed fracture; X58.XXXA Exposure to other specified factors, initial encounter; Y92.89 Other specified places as the place of occurrence of the external cause; F17.200 Nicotine dependence, unspecified, uncomplicated; Z88.0 Allergy status to penicillin; Z88.8 Allergy status to other drugs, medicaments and biological substances; Z88.5 Allergy status to narcotic agent; Z79.899 Other long term (current) drug therapy; Z79.2 Long term (current) use of antibiotics
CPT/HCPCS: 96372; 99283; J1885

== ENCOUNTER 2019-02-20 14:07 | Emergency (ER) | payer SELFPAY ==
[~2019-02-20] VITALS: Ht 160 cm; Wt 68.2 kg
[~2019-02-20 14:07] MED LIST changes: +KETO10TAB PO
[2019-02-20 15:12] LABS: BASO # 0.1 10^3/uL (0.0-0.2); BASO % 0.6 % (0.0-1.0); EOS # 0.1 10^3/uL (0.0-0.50); EOS % 0.9 % (0.0-3.0); HEMATOCRIT 38.2 % (36.0-47.0); LYMPH # 1.9 10^3/uL (1.5-6.5); LYMPH % 17.2 % (24.0-44.0); MEAN CORPUSCULAR VOLUME 105.8 fl (80.0-96.0); MONO # 0.6 10^3/uL (0.0-0.8); MONO % 5.9 % (0.0-5.0); NEUTROPHILS # 8.1 10^3/uL (1.8-7.7); PLATELET COUNT, AUTOMATED 252 10^3/uL (150-450); RED BLOOD COUNT 3.61 10^6/uL (4.00-5.40); WHITE BLOOD COUNT 10.8 10^3/uL (4.0-10.0)
[2019-02-20] MEDS ORDERED: NS 1,000 ML IV ONE (15:30)
[2019-02-20] MEDS ORDERED: ONDANSETRON 4MG/2ML VIAL (J2405) IV ONE (15:30)
[2019-02-20] MEDS ORDERED: KETOROLAC 30 MG/ML VIAL (J1885) IV ONE (15:30)
[2019-02-20 15:45] LABS: ALT/SGPT 16 U/L (12-78); BILIRUBIN,DIRECT 0.2 MG/DL (0.0-0.2); BILIRUBIN,TOTAL 0.4 MG/DL (0.2-1.0); BLOOD UREA NITROGEN 13 MG/DL (7-18); CALCIUM LEVEL 8.8 MG/DL (8.5-10.1); CARBON DIOXIDE LEVEL 27 MEQ/L (21-32); CHLORIDE LEVEL 111 MEQ/L (98-107); GLOMERULAR FILTRATION RATE > 60.0 (>60); GLUCOSE, FASTING 96 MG/DL (70-100); LIPASE 77 U/L (73-393); POTASSIUM SERUM 4.1 MEQ/L (3.5-5.1); SODIUM LEVEL 143 MEQ/L (136-145); TOTAL PROTEIN 7.4 GM/DL (6.4-8.2)
[2019-02-20] MEDS ORDERED: MACR100C43 PO (17:10)
[2019-02-20] MEDS ORDERED: NITROFURANTOIN (MACROBID) 100 MG CAP PO ONE (17:15)
[2019-02-20 17:17] VITALS: BP 102/62
--- NOTE | 2019-02-20 19:18 | REP ---
REASON: Right upper quadrant pain. Multiple ultrasonographic images of the liver show the hepatic parenchymal echo patten to be within normal limits. There is no intrahepatic or extrahepatic ductal dilatation. The common bile duct measures 4 mm. Multiple ultrasonographic images of the gallbladder show no abnormalities. The imaged portion of the pancreas and right kidney are within normal limits. There is an incidental echogenic focus seen in the superior pole of the right kidney. This does not cast an acoustic shadow and there is no associated hydronephrosis. IMPRESSION: Negative right upper quadrant ultrasound. Electronically Signed by Murray Oleary DO 02/21/2019 10:01 A
== END 2019-02-20 17:18 | disposition home or self-care (01) ==
LOC: M ED 14:07
DX: N39.0 Urinary tract infection, site not specified (principal); D64.9 Anemia, unspecified; Z79.899 Other long term (current) drug therapy; Z88.0 Allergy status to penicillin; Z88.5 Allergy status to narcotic agent; Z88.8 Allergy status to other drugs, medicaments and biological substances; F17.210 Nicotine dependence, cigarettes, uncomplicated
CPT/HCPCS: 76705; 80048; 80076; 81001; 83690; 84702; 85025; 87088; 87186; 96361; 96374; 96375; 99284; J1885; J2405

== ENCOUNTER 2019-03-21 15:21 | Emergency (ER) | payer SELFPAY ==
[~2019-03-21] VITALS: Ht 160 cm; Wt 66.8 kg
[~2019-03-21 15:21] MED LIST changes: +MACR100C43 PO
[2019-03-21 17:08] VITALS: BP 106/63
== END 2019-03-21 17:39 | disposition home or self-care (01) ==
LOC: M ED 15:21
DX: M25.472 Effusion, left ankle (principal); S93.402A Sprain of unspecified ligament of left ankle, initial encounter; X58.XXXA Exposure to other specified factors, initial encounter; Y92.9 Unspecified place or not applicable; M25.572 Pain in left ankle and joints of left foot; G47.00 Insomnia, unspecified; F17.210 Nicotine dependence, cigarettes, uncomplicated; Z86.59 Personal history of other mental and behavioral disorders; Z88.0 Allergy status to penicillin; Z88.5 Allergy status to narcotic agent; Z88.8 Allergy status to other drugs, medicaments and biological substances; Z79.899 Other long term (current) drug therapy

== ENCOUNTER 2019-03-23 13:28 | Emergency (ER) | payer SELFPAY ==
[~2019-03-23] VITALS: Ht 160 cm; Wt 66.1 kg
[2019-03-23] MEDS ORDERED: ONDANSETRON 4MG/2ML VIAL (J2405) IV ONE (15:15)
[2019-03-23] MEDS ORDERED: KETOROLAC 30 MG/ML VIAL (J1885) IV ONE (15:15)
[2019-03-23 15:24] LABS: BASO # 0.1 10^3/uL (0.0-0.2); BASO % 0.6 % (0.0-1.0); EOS # 0.1 10^3/uL (0.0-0.5); EOS % 0.7 % (0.0-3.0); HEMATOCRIT 41.5 % (36.0-47.0); HEMOGLOBIN 14.2 g/dl (12.0-15.5); LYMPH # 1.5 10^3/uL (1.5-5.0); LYMPH % 14.3 % (24.0-44.0); MEAN CORPUSCULAR HEMOGLOBIN 36.7 pg (27.0-33.0); MEAN CORPUSCULAR HGB CONC 34.2 g/dl (32.0-36.5); MEAN CORPUSCULAR VOLUME 107.2 fl (80.0-96.0); MONO # 0.6 10^3/uL (0.0-0.8); MONO % 6.1 % (0.0-5.0); NEUTROPHILS # 7.9 10^3/uL (1.5-8.5); NEUTROPHILS % 77.8 % (36.0-66.0); PLATELET COUNT, AUTOMATED 227 10^3/uL (150-450); RED BLOOD COUNT 3.87 10^6/uL (4.00-5.40); WHITE BLOOD COUNT 10.1 10^3/uL (4.0-10.0)
[2019-03-23 15:48] LABS: ALT/SGPT 15 U/L (12-78); BILIRUBIN,DIRECT 0.2 MG/DL (0.0-0.2); BILIRUBIN,TOTAL 0.5 MG/DL (0.2-1.0); BLOOD UREA NITROGEN 8 MG/DL (7-18); CALCIUM LEVEL 9.2 MG/DL (8.5-10.1); CARBON DIOXIDE LEVEL 28 MEQ/L (21-32); CHLORIDE LEVEL 108 MEQ/L (98-107); CREATININE FOR GFR 0.75 MG/DL (0.55-1.30); GLOMERULAR FILTRATION RATE > 60.0 (>60); GLUCOSE, FASTING 88 MG/DL (70-100); LIPASE 40 U/L (73-393); POTASSIUM SERUM 4.1 MEQ/L (3.5-5.1); SODIUM LEVEL 140 MEQ/L (136-145); TOTAL PROTEIN 7.4 GM/DL (6.4-8.2)
[2019-03-23] MEDS ORDERED: ISOVUE-370 76% 100ML VIAL (Q9967) As Ordered ONE (15:59)
--- NOTE | 2019-03-23 18:33 | REPVR ---
EXAM: US Pelvis Complete, Transabdominal and US Pelvis, Transvaginal EXAM DATE/TIME: 03/23/2019 5:42 PM CLINICAL HISTORY: 24 years old, female; Pelvic pain; Prior surgery; Surgery date: 6+ months; Surgery type: Tubal ligation; Additional info: Right lower abd pain TECHNIQUE: Imaging protocol: Real-time transabdominal and transvaginal pelvic ultrasound (complete) with image documentation. Transvaginal imaging was used for better evaluation of the endometrium and adnexa. COMPARISON: US PELVIC NON-OB COMPLETE 07/03/2015 11:51 PM FINDINGS: Uterus/cervix: The endometrium is 13 mm, which is within normal limits. There is also scant fluid in the endometrial cavity. The uterus is normal in size and shape. It is 8.7 x 4.7 x 5.8 cm. No uterine fibroid is identified. The uterus is anteverted. Right adnexa: The right ovary is normal in size and architecture. It is 2.9 x 2.4 x 1.8 cm. There is no ovarian mass or cyst. There is no ovarian torsion. Duplex Doppler demonstrates normal blood flow. Left adnexa: The left ovary is normal in size and architecture. It is 3.4 x 2.2 x 3.8 cm. There is no ovarian mass. A anechoic dominant follicle is 1.6 cm. Using duplex Doppler, normal blood flow is documented. There is no ovarian torsion. Free fluid: There is no free fluid. Bladder: Normal. Other findings: Unremarkable. 4.5 x 2.8 x 7.0 cm. IMPRESSION: 1. Normal pelvic ultrasound. 2. No cause for right lower quadrant abdominal pain is identified. Electronically signed by: Maged Chavez On 03/23/2019 18:32:43 PM
--- NOTE | 2019-03-23 18:37 | REP ---
CT ABDOMEN AND PELVIS WITH IV CONTRAST: TECHNIQUE: Axial contrast enhanced images from the lung bases to the pubic symphysis using 100 mL Isovue 370 intravenous contrast material with multiplanar reformations. COMPARISON: 12/14/2018. The visualized lung bases are clear. The liver, gallbladder, spleen, adrenals, pancreas and kidneys are unremarkable. There is no hydronephrosis. There is no biliary dilatation. There is no abdominal aortic aneurysm. There is no adenopathy. There is no free air. No bowel thickening is seen. The appendix is normal. There is mild free fluid in the pelvis. There is a dominant follicle of the left ovary 1.7 cm in diameter. There is mild heterogenous enhancement in the right adnexal region between the uterus and right ovary in the region of the right adnexal ligaments and fallopian tube. The findings could indicate pelvic inflammatory disease. Urinary bladder is not distended and not evaluated. IMPRESSION; No evidence of appendicitis. Mild free fluid in the pelvis. Dominant follicle left ovary 1.7 cm in diameter. Heterogenous enhancement in the region of the right adnexa between the ovary and uterus, in the region of the ligaments and fallopian tube. Findings could indicate pelvic inflammatory disease. Electronically Signed by Semaj Serrano MD 03/24/2019 04:59 P
[2019-03-23] MEDS ORDERED: DOXY100C37 PO (19:25)
[2019-03-23 19:31] VITALS: BP 114/57
== END 2019-03-23 19:36 | disposition home or self-care (01) ==
LOC: M ED 13:28
DX: N39.0 Urinary tract infection, site not specified (principal); J06.9 Acute upper respiratory infection, unspecified; F41.9 Anxiety disorder, unspecified; F43.10 Post-traumatic stress disorder, unspecified; F44.81 Dissociative identity disorder; Z79.899 Other long term (current) drug therapy; Z88.0 Allergy status to penicillin; Z88.5 Allergy status to narcotic agent; Z88.8 Allergy status to other drugs, medicaments and biological substances; F17.210 Nicotine dependence, cigarettes, uncomplicated
CPT/HCPCS: 74177; 76830; 76856; 80048; 80076; 81001; 83690; 84702; 85025; 87088; 87186; 87880; 93976; 96374; 96375; 99284; J1885; J2405; Q9967

== ENCOUNTER 2019-03-25 20:35 | Emergency (ER) | payer SELFPAY ==
[~2019-03-25] VITALS: Ht 160 cm; Wt 64.5 kg
[~2019-03-25 20:35] MED LIST changes: +DOXY100C37 PO
[2019-03-25 20:36] VITALS: BP 140/72
[2019-03-25] MEDS ORDERED: BENZONATATE 100 MG CAP PO ONE (22:15)
[2019-03-25] MEDS ORDERED: TESS100C PO (22:59)
== END 2019-03-25 23:00 | disposition home or self-care (01) ==
LOC: M ED 20:35
DX: R10.31 Right lower quadrant pain (principal); Z87.442 Personal history of urinary calculi; Z79.899 Other long term (current) drug therapy; Z88.0 Allergy status to penicillin; Z88.5 Allergy status to narcotic agent; Z88.8 Allergy status to other drugs, medicaments and biological substances

== ENCOUNTER 2019-03-29 18:58 | Emergency (ER) | payer SELFPAY ==
[~2019-03-29] VITALS: Ht 160 cm; Wt 63.6 kg
[~2019-03-29 18:58] MED LIST changes: +TESS100C PO
[2019-03-29 18:59] VITALS: BP 118/74
[2019-03-29] MEDS ORDERED: ALL10TAB29 PO (19:30)
[2019-03-29] MEDS ORDERED: FLUTISP (19:30)
== END 2019-03-29 19:38 | disposition home or self-care (01) ==
LOC: M ED 18:58
DX: J00 Acute nasopharyngitis [common cold] (principal); Z79.899 Other long term (current) drug therapy; Z88.0 Allergy status to penicillin; Z88.1 Allergy status to other antibiotic agents; Z88.5 Allergy status to narcotic agent; Z88.8 Allergy status to other drugs, medicaments and biological substances; F17.210 Nicotine dependence, cigarettes, uncomplicated

== ENCOUNTER 2019-04-29 00:06 | Emergency (ER) | payer MEDICAID, SELFPAY ==
[~2019-04-29] VITALS: Ht 160 cm; Wt 65.9 kg
[~2019-04-29 00:06] MED LIST changes: +ALL10TAB29 PO; +FLUTISP
[2019-04-29] MEDS ORDERED: HYDR-643 (00:14)
[2019-04-29] MEDS ORDERED: ESCI20TA (00:14)
[2019-04-29] MEDS ORDERED: QUET5TAB (00:14)
[2019-04-29] MEDS ORDERED: diphenhydrAMINE INJ 50MG/ML VIAL (J1200) IV STA (00:34)
[2019-04-29] MEDS ORDERED: METOCLOPRAMIDE INJ 10MG/2ML VIAL (J2765) IV ONE (00:45)
[2019-04-29] MEDS ORDERED: MECLIZINE 25 MG TABLET PO ONE (00:45)
[2019-04-29] MEDS ORDERED: NS 1,000 ML IV ONE (00:45)
[2019-04-29] MEDS ORDERED: KETOROLAC 30 MG/ML VIAL (J1885) IV ONE (00:45)
[2019-04-29 01:03] LABS: BASO # 0.1 10^3/uL (0.0-0.2); BASO % 0.7 % (0.0-1.0); EOS # 0.2 10^3/uL (0.0-0.5); EOS % 1.9 % (0.0-3.0); HEMATOCRIT 38.6 % (36.0-47.0); HEMOGLOBIN 13.2 g/dl (12.0-15.5); LYMPH % 40.3 % (24.0-44.0); MEAN CORPUSCULAR HGB CONC 34.2 g/dl (32.0-36.5); MEAN CORPUSCULAR VOLUME 105.2 fl (80.0-96.0); MONO # 0.6 10^3/uL (0.0-0.8); MONO % 6.2 % (0.0-5.0); NEUTROPHILS % 50.5 % (36.0-66.0); PLATELET COUNT, AUTOMATED 242 10^3/uL (150-450); RED BLOOD COUNT 3.67 10^6/uL (4.00-5.40); WHITE BLOOD COUNT 9.9 10^3/uL (4.0-10.0)
[2019-04-29] MEDS ORDERED: MECL-68 PO (01:57)
[2019-04-29 02:25] VITALS: BP 120/56
== END 2019-04-29 02:27 | disposition home or self-care (01) ==
LOC: M ED 00:06
DX: R42 Dizziness and giddiness (principal); R11.0 Nausea; R51 Headache; D64.9 Anemia, unspecified; F44.81 Dissociative identity disorder; Z98.51 Tubal ligation status; F17.200 Nicotine dependence, unspecified, uncomplicated; Z88.0 Allergy status to penicillin; Z88.8 Allergy status to other drugs, medicaments and biological substances; Z88.5 Allergy status to narcotic agent
CPT/HCPCS: 36415; 80047; 84702; 85025; 96361; 96374; 96375; 99284; J1200; J1885; J2765

== ENCOUNTER 2019-05-04 13:46 | Emergency (ER) | payer MEDICAID, SELFPAY ==
[~2019-05-04] VITALS: Ht 160 cm; Wt 65.9 kg
[~2019-05-04 13:46] MED LIST changes: +ESCI20TA; +HYDR-643; +MECL-68 PO; +QUET5TAB
[2019-05-04] MEDS ORDERED: LEXA1TAB2 PO (14:22)
[2019-05-04 15:29] LABS: HEMATOCRIT 39.5 % (36.0-47.0); HEMOGLOBIN 13.4 g/dl (12.0-15.5); MEAN CORPUSCULAR HEMOGLOBIN 36.6 pg (27.0-33.0); MEAN CORPUSCULAR HGB CONC 33.9 g/dl (32.0-36.5); MEAN CORPUSCULAR VOLUME 107.9 fl (80.0-96.0); PLATELET COUNT, AUTOMATED 220 10^3/uL (150-450); RED BLOOD COUNT 3.66 10^6/uL (4.00-5.40); WHITE BLOOD COUNT 6.8 10^3/uL (4.0-10.0)
[2019-05-04 15:52] LABS: BLOOD UREA NITROGEN 13 MG/DL (7-18); CARBON DIOXIDE LEVEL 27 MEQ/L (21-32); CHLORIDE LEVEL 111 MEQ/L (98-107); CREATININE FOR GFR 0.68 MG/DL (0.55-1.30); GLOMERULAR FILTRATION RATE > 60.0 (>60); GLUCOSE, FASTING 89 MG/DL (70-100); POTASSIUM SERUM 4.2 MEQ/L (3.5-5.1); SODIUM LEVEL 142 MEQ/L (136-145)
[2019-05-04 16:02] LABS: HCG, SERUM QUALITATIVE NEGATIVE (NEGATIVE)
--- NOTE | 2019-05-04 16:12 | REP ---
PELVIC ULTRASOUND: Real-time sonographic evaluation of the pelvis performed utilizing transabdominal and endovaginal technique. The bladder measures 4.1 x 2.1 x 6.1 cm. Uterus measures 9.5 x 4.1 x 6.1 cm. Endometrial thickness is 5 mm. Right ovary measures 2.9 x 2.3 x 2.5 cm. Left ovary 3.3 x 1.8 x 2.2 cm. A dominant follicle in the right ovary measures 1.7 cm in diameter. There is no torsion of either ovary with duplex Doppler evaluation. No other adnexal mass or free fluid is seen. IMPRESSION: Dominant follicle right ovary 1.7 cm. No evidence of torsion or free fluid. Electronically Signed by Semaj Serrano MD 05/05/2019 12:29 P
[2019-05-04] MEDS ORDERED: KETO10TAB PO (16:32)
[2019-05-04 16:40] VITALS: BP 109/62
== END 2019-05-04 16:41 | disposition home or self-care (01) ==
LOC: M ED 13:46
DX: N83.01 Follicular cyst of right ovary (principal); F17.200 Nicotine dependence, unspecified, uncomplicated; F43.10 Post-traumatic stress disorder, unspecified; F44.81 Dissociative identity disorder; Z79.899 Other long term (current) drug therapy; Z87.442 Personal history of urinary calculi; Z88.0 Allergy status to penicillin; Z88.5 Allergy status to narcotic agent; Z88.8 Allergy status to other drugs, medicaments and biological substances

== ENCOUNTER 2019-06-02 23:25 | Emergency (ER) | payer MEDICAID ==
[~2019-06-02] VITALS: Ht 162.6 cm; Wt 67.7 kg
[~2019-06-02 23:25] MED LIST changes: +LEXA1TAB2 PO
[2019-06-02] MEDS ORDERED: LIDOCAINE 5% OINT 30 GM TOP STA (23:51)
[2019-06-03] MEDS ORDERED: GABAPENTIN 300 MG CAP PO ONE
[2019-06-03] MEDS ORDERED: LIDO1CRE2 TOP (00:47)
[2019-06-03 00:53] VITALS: BP 107/65
== END 2019-06-03 00:54 | disposition home or self-care (01) ==
LOC: M ED 23:25
DX: M25.572 Pain in left ankle and joints of left foot (principal); F17.200 Nicotine dependence, unspecified, uncomplicated; Z88.0 Allergy status to penicillin; Z88.6 Allergy status to analgesic agent; Z88.8 Allergy status to other drugs, medicaments and biological substances

== ENCOUNTER → 2019-06-14 | Outpatient (REF) | payer MEDICAID ==
[~2019-06-14] MED LIST changes: +LIDO1CRE2 TOP
[2019-06-14 18:08] LABS: ALBUMIN 3.7 GM/DL (3.2-5.2); ALT/SGPT 22 U/L (12-78); BILIRUBIN,TOTAL 0.3 MG/DL (0.2-1.0); BLOOD UREA NITROGEN 17 MG/DL (7-18); CALCIUM LEVEL 8.9 MG/DL (8.5-10.1); CARBON DIOXIDE LEVEL 28 MEQ/L (21-32); CHLORIDE LEVEL 105 MEQ/L (98-107); CHOLESTEROL LEVEL 151 MG/DL (<200); CHOLESTEROL RISK RATIO 3.595 (<5); CREATININE FOR GFR 0.73 MG/DL (0.55-1.30); FREE T4 0.84 NG/DL (0.76-1.46); GLOMERULAR FILTRATION RATE > 60.0 (>60); GLUCOSE, FASTING 91 MG/DL (70-100); HDL CHOLESTEROL 42 MG/DL (>40); LDL CHOLESTEROL 55 MG/DL (<100); NON-HDL-C 109 MG/DL; POTASSIUM SERUM 4.6 MEQ/L (3.5-5.1); SODIUM LEVEL 139 MEQ/L (136-145); TRIGLYCERIDES LEVEL 268 MG/DL (<150)
[2019-06-14 18:15] LABS: BASO # 0.1 10^3/uL (0.0-0.2); BASO % 0.7 % (0.0-1.0); EOS # 0.3 10^3/uL (0.0-0.5); EOS % 2.9 % (0.0-3.0); HEMATOCRIT 41.6 % (36.0-47.0); HEMOGLOBIN 13.7 g/dl (12.0-15.5); LYMPH # 3.5 10^3/uL (1.5-5.0); LYMPH % 32.3 % (24.0-44.0); MEAN CORPUSCULAR HEMOGLOBIN 34.9 pg (27.0-33.0); MEAN CORPUSCULAR HGB CONC 32.9 g/dl (32.0-36.5); MEAN CORPUSCULAR VOLUME 105.9 fl (80.0-96.0); MONO # 0.8 10^3/uL (0.0-0.8); MONO % 7.3 % (0.0-5.0); NEUTROPHILS % 56.3 % (36.0-66.0); PLATELET COUNT, AUTOMATED 255 10^3/uL (150-450); RED BLOOD COUNT 3.93 10^6/uL (4.00-5.40); WHITE BLOOD COUNT 10.7 10^3/uL (4.0-10.0)
[2019-06-14 18:20] LABS: TOTAL 25(OH) VITAMIN D 17.6 NG/ML (30.0-100.0)
== END ==
LOC: M LAB REF 16:21
PROVIDERS: ATTEND Nurse Practitioner Family
DX: Z13.9 Encounter for screening, unspecified (principal)

== ENCOUNTER → 2019-06-21 | Outpatient (CLI) | payer OTHER ==
--- NOTE | 2019-06-21 18:00 | REP ---
LEFT ANKLE, FOUR VIEWS: ANKLE: There is no evidence of an acute fracture, dislocation or intrinsic bone disease. The ankle mortise is anatomic. IMPRESSION: No fracture or dislocation. Electronically Signed by Semaj Serrano MD 06/23/2019 10:24 A
== END ==
LOC: M RAD 16:34
PROVIDERS: ATTEND Nurse Practitioner Family
DX: M25.572 Pain in left ankle and joints of left foot (principal)

== ENCOUNTER 2019-08-03 22:36 | Emergency (ER) | payer OTHER ==
[~2019-08-03] VITALS: Ht 160 cm; Wt 72.2 kg
[~2019-08-03 22:36] MED LIST changes: -MECL-68 PO; +MECL1TAB31 PO
[2019-08-03 22:37] VITALS: BP 112/68
[2019-08-03] MEDS ORDERED: ACET-683 PO (22:50)
[2019-08-03 23:47] LABS: INFLUENZA A AMPLIFICATION POSITIVE (NEGATIVE); INFLUENZA B AMPLIFICATION NEGATIVE (NEGATIVE)
[2019-08-04] MEDS ORDERED: OSEL75CA PO (00:55)
[2019-08-04] MEDS ORDERED: ONDA4TAB6 PO (00:55)
[2019-08-04] MEDS ORDERED: OSELTAMIVIR PHOSPHATE 75 MG CAP (TAMIFLU) PO ONE (01:00)
[2019-08-04] MEDS ORDERED: ONDANSETRON 4 MG ORAL DISINTEGRATING TAB (Q0162 PER 1MG) PO ONE (01:00)
== END 2019-08-04 01:07 | disposition home or self-care (01) ==
LOC: M ED 22:36
DX: J09.X9 Influenza due to identified novel influenza A virus with other manifestations (principal); F33.9 Major depressive disorder, recurrent, unspecified; F41.9 Anxiety disorder, unspecified; F43.10 Post-traumatic stress disorder, unspecified; Z79.899 Other long term (current) drug therapy; Z88.0 Allergy status to penicillin; Z88.5 Allergy status to narcotic agent; Z88.8 Allergy status to other drugs, medicaments and biological substances; F17.210 Nicotine dependence, cigarettes, uncomplicated
CPT/HCPCS: 87502; 87880; 99283; Q0162

== ENCOUNTER → 2019-08-04 | Outpatient (REF) | payer OTHER ==
[~2019-08-04] MED LIST changes: +ONDA4TAB6 PO; +OSEL75CA PO
[2019-08-04 15:06] LABS: CHLAMYDIA DNA AMPLIFICATION NEGATIVE (NEGATIVE); GC DNA AMPLIFICATION NEGATIVE (NEGATIVE)
== END ==
LOC: M LAB REF 12:15
PROVIDERS: ATTEND Nurse Practitioner Family
DX: Z12.4 Encounter for screening for malignant neoplasm of cervix (principal); Z13.9 Encounter for screening, unspecified

== ENCOUNTER 2019-08-28 03:21 | Emergency (ER) | payer OTHER ==
[~2019-08-28] VITALS: Ht 160 cm; Wt 72.7 kg
[~2019-08-28 03:21] MED LIST changes: +RALTEGRAVIR 400 MG TAB (ISENTRESS) PO SCH; +TRUVADA 200MG/300MG TABLET PO SCH
[2019-08-28] MEDS ORDERED: EXPOSURE KIT-ADULT 7 DAY SUPPLY PO ONE (05:30)
[2019-08-28] MEDS ORDERED: metroNIDAZOLE (FLAGYL) 500 MG TAB PO ONE (05:30)
[2019-08-28] MEDS ORDERED: AZITHROMYCIN 250 MG TAB PO ONE (05:30)
[2019-08-28] MEDS ORDERED: GENTAMICIN 240 MG in D5W 50 ML IM ONE (05:30)
[2019-08-28] MEDS ORDERED: RALT40TA PO (05:50)
[2019-08-28] MEDS ORDERED: TRUVTAB PO (05:50)
[2019-08-28] MEDS ORDERED: GENTAMICIN SULF INJ 80MG/2ML VIAL (J1580) IM ONE (06:00)
[2019-08-28] MEDS ORDERED: TRUVADA 200MG/300MG TABLET PO ONE (06:00)
[2019-08-28] MEDS ORDERED: RALTEGRAVIR 400 MG TAB (ISENTRESS) PO ONE (06:00)
[2019-08-28 06:21] VITALS: BP 121/72
[2019-08-28 06:25] LABS: BASO # 0.1 10^3/uL (0.0-0.2); EOS # 0.3 10^3/uL (0.0-0.5); EOS % 2.3 % (0.0-3.0); HEMATOCRIT 39.9 % (36.0-47.0); HEMOGLOBIN 13.5 g/dl (12.0-15.5); LYMPH # 4.5 10^3/uL (1.5-5.0); LYMPH % 36.9 % (24.0-44.0); MEAN CORPUSCULAR HEMOGLOBIN 35.2 pg (27.0-33.0); MEAN CORPUSCULAR HGB CONC 33.8 g/dl (32.0-36.5); MEAN CORPUSCULAR VOLUME 104.2 fl (80.0-96.0); MONO # 0.8 10^3/uL (0.0-0.8); MONO % 6.3 % (0.0-5.0); NEUTROPHILS # 6.4 10^3/uL (1.5-8.5); PLATELET COUNT, AUTOMATED 306 10^3/uL (150-450); RED BLOOD COUNT 3.83 10^6/uL (4.00-5.40); WHITE BLOOD COUNT 12.1 10^3/uL (4.0-10.0)
[2019-08-28 06:48] LABS: ALBUMIN 3.8 GM/DL (3.2-5.2); ALT/SGPT 71 U/L (12-78); BILIRUBIN,TOTAL 0.1 MG/DL (0.2-1.0); BLOOD UREA NITROGEN 10 MG/DL (7-18); CALCIUM LEVEL 8.6 MG/DL (8.5-10.1); CARBON DIOXIDE LEVEL 26 MEQ/L (21-32); CHLORIDE LEVEL 110 MEQ/L (98-107); CREATININE FOR GFR 0.71 MG/DL (0.55-1.30); GLOMERULAR FILTRATION RATE > 60.0 (>60); GLUCOSE, FASTING 91 MG/DL (70-100); POTASSIUM SERUM 4.4 MEQ/L (3.5-5.1); SODIUM LEVEL 142 MEQ/L (136-145); TOTAL PROTEIN 7.3 GM/DL (6.4-8.2)
[2019-08-28 07:50] LABS: CHLAMYDIA DNA AMPLIFICATION NEGATIVE (NEGATIVE); GC DNA AMPLIFICATION NEGATIVE (NEGATIVE)
[2019-08-30 10:50] LABS: HEPATITIS B SURFACE ANTIBODY NEGATIVE (POSITIVE)
[2019-08-30 11:00] LABS: HEPATITIS B SURFACE ANTIGEN NEGATIVE (NEGATIVE)
[2019-08-30 11:29] LABS: HEPATITIS C VIRUS ABY INDEX < 0.0 INDEX (<0.8); HIV 1&2 SCREEN CENTAUR NEGATIVE (NEGATIVE)
== END 2019-08-28 06:23 | disposition home or self-care (01) ==
LOC: M ED 03:21
DX: T76.21XA Adult sexual abuse, suspected, initial encounter (principal); X58.XXXA Exposure to other specified factors, initial encounter; Y92.410 Unspecified street and highway as the place of occurrence of the external cause; F33.9 Major depressive disorder, recurrent, unspecified; F41.9 Anxiety disorder, unspecified; F43.10 Post-traumatic stress disorder, unspecified; F20.9 Schizophrenia, unspecified; Z79.899 Other long term (current) drug therapy; Z88.0 Allergy status to penicillin; Z88.5 Allergy status to narcotic agent; Z88.8 Allergy status to other drugs, medicaments and biological substances; F17.210 Nicotine dependence, cigarettes, uncomplicated
CPT/HCPCS: 36415; 80053; 85025; 86706; 86780; 86803; 87340; 87389; 87661; 99283; J1580

== ENCOUNTER 2019-11-05 23:07 | Emergency (ER) | payer OTHER ==
[~2019-11-05] VITALS: Ht 160 cm; Wt 78.2 kg
[~2019-11-05 23:07] MED LIST changes: +RALT40TA PO; -RALTEGRAVIR 400 MG TAB (ISENTRESS) PO SCH; -TRUVADA 200MG/300MG TABLET PO SCH; +TRUVTAB PO
[2019-11-05 23:08] VITALS: BP 127/74
[2019-11-06] MEDS ORDERED: LIDOCAINE VISCOUS 2% SOLN 15ML UDC TOP ONE (00:15)
[2019-11-06] MEDS ORDERED: KETOROLAC TROMETHAMINE 10 MG TAB PO ONE (00:15)
[2019-11-06] MEDS ORDERED: CLINDAMYCIN 150MG CAPSULE PO ONE (00:15)
[2019-11-06] MEDS ORDERED: KETO10TAB PO (00:19)
[2019-11-06] MEDS ORDERED: LIDVISCBTL TOP (00:19)
[2019-11-06] MEDS ORDERED: CLEO300C2 PO (00:19)
== END 2019-11-06 00:43 | disposition home or self-care (01) ==
LOC: M ED 23:07
DX: K04.7 Periapical abscess without sinus (principal); F31.9 Bipolar disorder, unspecified; F43.10 Post-traumatic stress disorder, unspecified; F44.81 Dissociative identity disorder; F17.200 Nicotine dependence, unspecified, uncomplicated; F12.90 Cannabis use, unspecified, uncomplicated; Z87.442 Personal history of urinary calculi; Z98.51 Tubal ligation status; Z88.0 Allergy status to penicillin; Z88.6 Allergy status to analgesic agent

== ENCOUNTER 2019-11-13 18:13 | Emergency (ER) | payer OTHER ==
[~2019-11-13] VITALS: Ht 160 cm; Wt 80.9 kg
[~2019-11-13 18:13] MED LIST changes: +LIDVISCBTL TOP
[2019-11-13] MEDS ORDERED: QUET200T2 (18:22)
[2019-11-13 19:30] LABS: BASO # 0.1 10^3/uL (0.0-0.2); BASO % 0.6 % (0.0-1.0); EOS # 0.2 10^3/uL (0.0-0.5); EOS % 1.9 % (0.0-3.0); HEMATOCRIT 41.1 % (36.0-47.0); HEMOGLOBIN 13.7 g/dl (12.0-15.5); LYMPH % 30.4 % (24.0-44.0); MEAN CORPUSCULAR HEMOGLOBIN 34.9 pg (27.0-33.0); MEAN CORPUSCULAR HGB CONC 33.3 g/dl (32.0-36.5); MEAN CORPUSCULAR VOLUME 104.8 fl (80.0-96.0); MONO # 0.6 10^3/uL (0.0-0.8); NEUTROPHILS # 6.1 10^3/uL (1.5-8.5); NEUTROPHILS % 60.8 % (36.0-66.0); PLATELET COUNT, AUTOMATED 252 10^3/uL (150-450); RED BLOOD COUNT 3.92 10^6/uL (4.00-5.40)
[2019-11-13] MEDS ORDERED: KETOROLAC 60 MG/2 ML VIAL IM ONE (19:30)
[2019-11-13 19:50] LABS: ERYTHROCYTE SEDIMENTATION RATE 10 mm/hr (0-20)
[2019-11-13 20:00] LABS: BLOOD UREA NITROGEN 13 MG/DL (7-18); C REACTIVE PROTEIN QUANTITATIV < 0.30 MG/DL (0.00-0.30); CALCIUM LEVEL 8.2 MG/DL (8.5-10.1); CARBON DIOXIDE LEVEL 25 MEQ/L (21-32); CHLORIDE LEVEL 110 MEQ/L (98-107); GLOMERULAR FILTRATION RATE > 60.0 (>60); GLUCOSE, FASTING 90 MG/DL (70-100); POTASSIUM SERUM 4.4 MEQ/L (3.5-5.1); SODIUM LEVEL 139 MEQ/L (136-145)
[2019-11-13 20:43] VITALS: BP 135/89
== END 2019-11-13 20:46 | disposition home or self-care (01) ==
LOC: M ED 18:13
DX: M85.88 Other specified disorders of bone density and structure, other site (principal); F41.9 Anxiety disorder, unspecified; F32.9 Major depressive disorder, single episode, unspecified; F43.10 Post-traumatic stress disorder, unspecified; F20.9 Schizophrenia, unspecified; Z87.442 Personal history of urinary calculi; F17.210 Nicotine dependence, cigarettes, uncomplicated; F12.10 Cannabis abuse, uncomplicated; Z88.0 Allergy status to penicillin; Z88.5 Allergy status to narcotic agent; Z88.8 Allergy status to other drugs, medicaments and biological substances; Z79.899 Other long term (current) drug therapy
CPT/HCPCS: 80048; 84702; 85025; 85652; 86140; 96372; 99283; J1885

== ENCOUNTER → 2019-11-17 | Outpatient (REF) | payer OTHER, MEDICAID ==
[~2019-11-17] MED LIST changes: +QUET200T2
[2019-11-17 12:45] LABS: BASO # 0.1 10^3/uL (0.0-0.2); BASO % 0.8 % (0.0-1.0); EOS # 0.2 10^3/uL (0.0-0.5); EOS % 2.2 % (0.0-3.0); HEMOGLOBIN 14.7 g/dl (12.0-15.5); LYMPH # 3.2 10^3/uL (1.5-5.0); LYMPH % 34.4 % (24.0-44.0); MEAN CORPUSCULAR HEMOGLOBIN 34.7 pg (27.0-33.0); MEAN CORPUSCULAR HGB CONC 33.4 g/dl (32.0-36.5); MEAN CORPUSCULAR VOLUME 103.8 fl (80.0-96.0); MONO # 0.8 10^3/uL (0.0-0.8); MONO % 8.2 % (0.0-5.0); NEUTROPHILS # 4.9 10^3/uL (1.5-8.5); NEUTROPHILS % 53.7 % (36.0-66.0); PLATELET COUNT, AUTOMATED 296 10^3/uL (150-450); RED BLOOD COUNT 4.24 10^6/uL (4.00-5.40); WHITE BLOOD COUNT 9.2 10^3/uL (4.0-10.0)
[2019-11-17 12:56] LABS: ALT/SGPT 22 U/L (12-78); BILIRUBIN,TOTAL 0.4 MG/DL (0.2-1.0); BLOOD UREA NITROGEN 16 MG/DL (7-18); CALCIUM LEVEL 9.3 MG/DL (8.5-10.1); CARBON DIOXIDE LEVEL 26 MEQ/L (21-32); CHLORIDE LEVEL 104 MEQ/L (98-107); CHOLESTEROL LEVEL 183 MG/DL (<200); CREATININE FOR GFR 0.84 MG/DL (0.55-1.30); GLOMERULAR FILTRATION RATE > 60.0 (>60); GLUCOSE, FASTING 96 MG/DL (70-100); HDL CHOLESTEROL 41 MG/DL (>40); POTASSIUM SERUM 4.4 MEQ/L (3.5-5.1); SODIUM LEVEL 138 MEQ/L (136-145); TRIGLYCERIDES LEVEL 157 MG/DL (<150)
[2019-11-17 12:57] LABS: ALBUMIN 4.1 GM/DL (3.2-5.2); CHOLESTEROL RISK RATIO 4.463 (<5); LDL CHOLESTEROL 111 MG/DL (<100); NON-HDL-C 142 MG/DL; TOTAL 25(OH) VITAMIN D 20.3 NG/ML (30.0-100.0); TOTAL PROTEIN 7.9 GM/DL (6.4-8.2)
== END ==
LOC: M LAB REF 11:49
PROVIDERS: ATTEND Nurse Practitioner Family
DX: E55.9 Vitamin D deficiency, unspecified (principal); F17.200 Nicotine dependence, unspecified, uncomplicated; M25.572 Pain in left ankle and joints of left foot; Z13.9 Encounter for screening, unspecified; F41.8 Other specified anxiety disorders

== ENCOUNTER 2020-02-11 14:46 | Emergency (ER) | payer OTHER, MEDICAID ==
[~2020-02-11 14:46] MED LIST changes: -ALL10TAB29 PO; +CETI-24 PO
[2020-02-11] MEDS ORDERED: KETOROLAC 30 MG/ML 1ML VIAL As Ordered ONE (17:12)
[2020-02-11] MEDS ORDERED: metroNIDAZOLE/NACL 500MG(5MG/ML) 100ML BAG (S0030) As Ordered ONE (17:14)
[2020-02-11] MEDS ORDERED: KETOROLAC 30 MG/ML 1ML VIAL ONE (17:14)
[2020-02-11] MEDS ORDERED: metroNIDAZOLE/NACL 500MG(5MG/ML) 100ML BAG (S0030) ONE (17:14)
[2020-02-11] MEDS ORDERED: ISOVUE-370 76% 100ML VIAL As Ordered ONE (19:03)
[2020-03-14 11:09] LABS: ERYTHROCYTE SEDIMENTATION RATE 10 mm/hr (0-20)
[2020-03-14 11:25] LABS: BASO # 0.1 10^3/uL (0.0-0.2); BASO % 0.6 % (0.0-1.0); EOS # 0.2 10^3/uL (0.0-0.5); EOS % 2.3 % (0.0-3.0); HEMATOCRIT 40.7 % (36.0-47.0); HEMOGLOBIN 13.6 g/dl (12.0-15.5); LYMPH # 2.2 10^3/uL (1.5-5.0); LYMPH % 25.1 % (24.0-44.0); MEAN CORPUSCULAR HEMOGLOBIN 34.3 pg (27.0-33.0); MEAN CORPUSCULAR HGB CONC 33.4 g/dl (32.0-36.5); MEAN CORPUSCULAR VOLUME 102.5 fl (80.0-96.0); MONO # 0.5 10^3/uL (0.0-0.8); MONO % 5.6 % (0.0-5.0); NEUTROPHILS # 5.7 10^3/uL (1.5-8.5); NEUTROPHILS % 65.9 % (36.0-66.0); PLATELET COUNT, AUTOMATED 262 10^3/uL (150-450); RED BLOOD COUNT 3.97 10^6/uL (4.00-5.40); WHITE BLOOD COUNT 8.7 10^3/uL (4.0-10.0)
[2020-03-27 11:48] LABS: BLOOD UREA NITROGEN 11 MG/DL (7-18); CARBON DIOXIDE LEVEL 27 MEQ/L (21-32); CHLORIDE LEVEL 111 MEQ/L (98-107); GLOMERULAR FILTRATION RATE > 60.0 (>60); GLUCOSE, FASTING 84 MG/DL (70-100); POTASSIUM SERUM 4.5 MEQ/L (3.5-5.1); SODIUM LEVEL 141 MEQ/L (136-145)
[2020-03-27 11:49] LABS: ALBUMIN 3.9 GM/DL (3.2-5.2); ALT/SGPT 30 U/L (12-78); BILIRUBIN,TOTAL 0.3 MG/DL (0.2-1.0); C REACTIVE PROTEIN QUANTITATIV 0.61 MG/DL (0.00-0.30); TOTAL PROTEIN 7.2 GM/DL (6.4-8.2)
== END 2020-02-11 20:42 | disposition home or self-care (01) ==
LOC: M ED 14:46
DX: J32.0 Chronic maxillary sinusitis (principal); K02.9 Dental caries, unspecified; Z79.2 Long term (current) use of antibiotics; Z88.0 Allergy status to penicillin; Z88.5 Allergy status to narcotic agent; Z88.8 Allergy status to other drugs, medicaments and biological substances; F17.210 Nicotine dependence, cigarettes, uncomplicated; F12.20 Cannabis dependence, uncomplicated
CPT/HCPCS: 70487; 80053; 83605; 85025; 85652; 86140; 87040; 96374; 96375; 99284; J1885; Q9967

== ENCOUNTER → 2020-02-16 | Outpatient (REF) | payer OTHER, MEDICAID ==
[2020-03-16 10:22] LABS: APPEARANCE, URINE HAZY (CLEAR); BILIRUBIN, URINE AUTO NEGATIVE (NEGATIVE); BLOOD, URINE BLOOD NEGATIVE (NEGATIVE); COLOR, URINE YELLOW (YELLOW); GLUCOSE, URINE (UA) AUTO NEGATIVE (NEGATIVE); KETONE, URINE AUTO NEGATIVE (NEGATIVE); LEUKOCYTE ESTERASE, URINE AUTO NEGATIVE (NEGATIVE); NITRITE, URINE AUTO POSITIVE (NEGATIVE); PROTEIN, URINE AUTO NEGATIVE (NEGATIVE); SPECIFIC GRAVITY URINE AUTO 1.017 (1.002-1.035); UROBILINOGEN, URINE AUTO 0.2 mg/dL (0.0-2.0)
[2020-03-16 10:23] LABS: BACTERIA, URINE AUTO 1+ (NEGATIVE); MUCUS, URINE SMALL (NEGATIVE); RBC, URINE AUTO 0 /HPF (0-3); SQUAMOUS EPITHELIAL CELL UR AU 1 /HPF (0-6); WBC, URINE AUTO 2 /HPF (0-3)
[2020-03-16 10:32] LABS: BASO # 0.1 10^3/uL (0.0-0.2); BASO % 0.6 % (0.0-1.0); EOS # 0.2 10^3/uL (0.0-0.5); EOS % 2.5 % (0.0-3.0); HEMATOCRIT 40.2 % (36.0-47.0); HEMOGLOBIN 13.4 g/dl (12.0-15.5); LYMPH # 3.6 10^3/uL (1.5-5.0); MEAN CORPUSCULAR HEMOGLOBIN 34.9 pg (27.0-33.0); MEAN CORPUSCULAR HGB CONC 33.3 g/dl (32.0-36.5); MEAN CORPUSCULAR VOLUME 104.7 fl (80.0-96.0); MONO # 0.6 10^3/uL (0.0-0.8); MONO % 5.8 % (0.0-5.0); NEUTROPHILS # 5.2 10^3/uL (1.5-8.5); NEUTROPHILS % 53.7 % (36.0-66.0); PLATELET COUNT, AUTOMATED 307 10^3/uL (150-450); RED BLOOD COUNT 3.84 10^6/uL (4.00-5.40); WHITE BLOOD COUNT 9.7 10^3/uL (4.0-10.0)
[2020-04-01 11:47] LABS: ALT/SGPT 35 U/L (12-78); BILIRUBIN,TOTAL 0.3 MG/DL (0.2-1.0); BLOOD UREA NITROGEN 13 MG/DL (7-18); CALCIUM LEVEL 8.8 MG/DL (8.5-10.1); CARBON DIOXIDE LEVEL 30 MEQ/L (21-32); CHLORIDE LEVEL 109 MEQ/L (98-107); CHOLESTEROL LEVEL 174 MG/DL (<200); CHOLESTEROL RISK RATIO 4.578 (<5); CREATININE FOR GFR 0.81 MG/DL (0.55-1.30); FREE T4 0.92 NG/DL (0.76-1.46); GLOMERULAR FILTRATION RATE > 60.0 (>60); GLUCOSE, FASTING 84 MG/DL (70-100); HDL CHOLESTEROL 38 MG/DL (>40); LDL CHOLESTEROL 84 MG/DL (<100); NON-HDL-C 136 MG/DL; POTASSIUM SERUM 4.3 MEQ/L (3.5-5.1); SODIUM LEVEL 142 MEQ/L (136-145); TOTAL 25(OH) VITAMIN D 28.9 NG/ML (30.0-100.0); TOTAL PROTEIN 7.1 GM/DL (6.4-8.2); TRIGLYCERIDES LEVEL 261 MG/DL (<150)
== END ==
LOC: M LAB REF 09:16
PROVIDERS: ATTEND Nurse Practitioner Family
DX: E78.5 Hyperlipidemia, unspecified (principal); R39.89 Other symptoms and signs involving the genitourinary system; E55.9 Vitamin D deficiency, unspecified; F17.200 Nicotine dependence, unspecified, uncomplicated; Z13.9 Encounter for screening, unspecified; G47.00 Insomnia, unspecified; F41.8 Other specified anxiety disorders